=== PATIENT | female | born 1945 | race Caucasian/White ===

== ENCOUNTER 2018-10-20 03:51 | Emergency (ER) | payer MEDICARE, BC ==
[~2018-10-20] VITALS: Ht 152.4 cm; Wt 45.0 kg
--- NOTE | 2018-10-20 04:05 | NUR ---
bib remsa from home with c/o right flank pain that is tender to palpation started at 2300, denies n/v, fall or injury. pt a&ox4, gcs-15, 98% r/a, hr-103, b/p-128/70. monitors applied, siderails up x2, call light within reach
[2018-10-20] MEDS ORDERED: ABAC1TAB14 PO (04:12)
[2018-10-20] MEDS ORDERED: LOPE1LIQ6 PO (04:12)
[2018-10-20] MEDS ORDERED: DOCU240C53 PO (04:12)
[2018-10-20] MEDS ORDERED: ATOR10TA9 PO (04:12)
[2018-10-20] MEDS ORDERED: AMLO10TA8 PO (04:12)
[2018-10-20] MEDS ORDERED: CHOL2000 PO (04:12)
--- NOTE | 2018-10-20 04:34 | NUR ---
pt assisted to rr via w/c, provided pt with urine cup for sample
--- NOTE | 2018-10-20 04:45 | NUR ---
urine sample taken to lab
[2018-10-20 04:59] LABS: MICROSCOPIC NOT IND
[2018-10-20 05:01] LABS: CULTURE INDICATED? NO
[2018-10-20 05:37] LABS: BASOPHILS # (AUTO) 0.02 x10^3/uL (0-0.1); BASOPHILS % (AUTO) 0 % (0-1); EOSINOPHILS # (AUTO) 0.02 x10^3/uL (0-0.4); EOSINOPHILS % (AUTO) 0 % (1-7); LYMPHOCYTES # (AUTO) 1.36 x10^3/uL (1-3.4); LYMPHOCYTES % (AUTO) 14 % (22-44); MD NO; MEAN CORPUSCULAR HEMOGLOBIN 30.1 pg (27.0-34.8); MEAN CORPUSCULAR HGB CONC 33.2 g/dL (32.4-35.8); MEAN CORPUSCULAR VOLUME 90.6 fL (80-100); MEAN PLATELET VOLUME 9.3 fL (7.4-10.4); MONOCYTES # (AUTO) 0.55 x10^3/uL (0.2-0.8); MONOCYTES % (AUTO) 6 % (2-9); NEUTROPHILS # (AUTO) 8.09 x10^3/uL (1.8-6.8); NEUTROPHILS % (AUTO) 81 % (42-75); PLATELET COUNT 186 x10^3/uL (130-400); RED BLOOD COUNT 4.26 x10^6/uL (3.82-5.3); RED CELL DISTRIBUTION WIDTH 13.3 % (9.6-15.2)
[2018-10-20 05:38] LABS: ALANINE AMINOTRANSFERASE 25 U/L (12-78); ANION GAP 6 mmol/L (5-15); CALCIUM 8.7 mg/dL (8.5-10.1); CHLORIDE 107 mmol/L (98-107); CREATININE 0.72 mg/dL (0.55-1.02)
[2018-10-20 05:40] LABS: ALKALINE PHOSPHATASE 76 U/L (45-117); BILIRUBIN,TOTAL 0.6 mg/dL (0.2-1.0); TOTAL PROTEIN 7.3 g/dL (6.4-8.2)
--- NOTE | 2018-10-20 06:00 | NUR ---
pt resting on gurney, monitors in place, call light within reach. awaiting ct result
--- NOTE | 2018-10-20 06:18 | NUR ---
PT ABLE TO SLOWLY AMBULATE IN [place], STATED " IT JUST HURTS TOO MUCH", ASSISTED PT BACK TO ROOM, ERP UPDATED
[2018-10-20] MEDS ORDERED: ACETAMINOPHEN 500 MG TABLET ONE (06:46)
--- NOTE | 2018-10-20 06:48 | NUR ---
provided pt with ice pack, medicated per mar
[2018-10-20] MEDS ORDERED: ACETAMINOPHEN 500 MG TABLET PO ONE (07:00)
--- NOTE | 2018-10-20 07:00 | NUR ---
report given to indigo pickett
[2018-10-20 07:16] VITALS: BP 127/68
--- NOTE | 2018-10-20 07:17 | NUR ---
Patient/Caregiver given discharge instructions and they have confirmed that they understand the instructions. Patient ambulatory with steady gait.
== END 2018-10-20 07:18 | disposition home or self-care (01) ==
LOC: ED 05:33
DX: M54.5 Low back pain (principal); Z21 Asymptomatic human immunodeficiency virus [HIV] infection status
CPT/HCPCS: 36415; 74176; 80053; 81003; 83690; 85025; 99284

== ENCOUNTER 2019-03-12 10:30 | Outpatient (CLI) | payer MEDICARE, BC | END 2019-03-12 23:59 | disposition home or self-care (01) | LOC: CFH 10:30 | PROVIDERS: ATTEND Internal Medicine Cardiovascular Disease | DX: R94.31 Abnormal electrocardiogram [ECG] [EKG] (principal); I34.8 Other nonrheumatic mitral valve disorders; I10 Essential (primary) hypertension; E78.5 Hyperlipidemia, unspecified; Z87.891 Personal history of nicotine dependence | CPT/HCPCS: 93306 ==

== ENCOUNTER → 2019-06-11 | Outpatient (CLI) | payer MEDICARE, BC ==
[~2019-06-11] MED LIST: ABAC1TAB14 PO; AMLO10TA8 PO; ATOR10TA9 PO; CHOL2000 PO; DOCU240C53 PO; LOPE1LIQ6 PO; OMNIPAQUE 350 MG/ML, 150 ML BOTTLE ONE
== END | disposition home or self-care (01) ==
LOC: CFH 09:49
PROVIDERS: ATTEND Surgery
DX: I70.203 Unspecified atherosclerosis of native arteries of extremities, bilateral legs (principal)
CPT/HCPCS: 75635; Q9967

== ENCOUNTER 2021-01-10 13:03 | Outpatient (CLI) | payer MEDICARE, BC ==
[~2021-01-10 13:03] MED LIST changes: +AMLO-211 PO; -AMLO10TA8 PO; -OMNIPAQUE 350 MG/ML, 150 ML BOTTLE ONE
[2021-01-10] MEDS ORDERED: OMNIPAQUE 350 MG/ML, 150 ML BOTTLE ONE (14:06)
[2021-02-17] MEDS ORDERED: DOCU-131 PO (12:01)
[2021-02-17] MEDS ORDERED: OXYC1TAB14 PO (12:01)
[2021-02-17] MEDS ORDERED: OXYC-302 PO (12:03)
== END 2021-01-10 23:59 | disposition home or self-care (01) ==
LOC: CFH 13:03
PROVIDERS: ATTEND Surgery
DX: I70.213 Atherosclerosis of native arteries of extremities with intermittent claudication, bilateral legs (principal); G12.8 Other spinal muscular atrophies and related syndromes; I70.8 Atherosclerosis of other arteries; R60.0 Localized edema
CPT/HCPCS: 75635; 82565; Q9967

== ENCOUNTER 2021-01-25 08:00 | Outpatient (CLI) | payer MEDICARE, BC ==
[~2021-01-25] VITALS: Ht 154.9 cm; Wt 45.4 kg
[2021-01-25] MEDS ORDERED: ABAC1TAB14 PO (08:28)
[2021-01-25] MEDS ORDERED: CHOL10003 PO (08:28)
[2021-01-25] MEDS ORDERED: ATOR40TA78 PO (08:28)
[2021-01-25] MEDS ORDERED: hydroeye PO (08:28)
[2021-01-25] MEDS ORDERED: ASPI81TA45 PO (08:28)
[2021-01-25] MEDS ORDERED: LIFI1DRO EACHEYE (08:28)
[2021-01-25] MEDS ORDERED: potassium PO (08:28)
[2021-01-25] MEDS ORDERED: AMLO1CAP PO (08:28)
[2021-01-25] MEDS ORDERED: A/C/1TAB3 PO (08:28)
[2021-01-25 09:19] LABS: BASOPHILS % (AUTO) 0 % (0-1); EOSINOPHILS % (AUTO) 1 % (1-7); LYMPHOCYTES % (AUTO) 34 % (22-44); MEAN PLATELET VOLUME 8.9 fL (7.4-10.4); MONOCYTES % (AUTO) 8 % (2-9); NEUTROPHILS % (AUTO) 57 % (42-75); PLATELET COUNT 179 x10^3/uL (130-400); RED BLOOD COUNT 4.46 x10^6/uL (3.82-5.3); RED CELL DISTRIBUTION WIDTH 13.4 % (9.6-15.2)
[2021-01-25 09:30] LABS: ANION GAP 9 mmol/L (5-15); CALCIUM 9.6 mg/dL (8.5-10.1); CHLORIDE 105 mmol/L (98-107); CREATININE 0.78 mg/dL (0.55-1.02)
[2021-01-25 09:31] LABS: ALANINE AMINOTRANSFERASE 39 U/L (12-78); ALBUMIN 4.2 g/dL (3.4-5.0)
[2021-01-25 09:33] LABS: ALKALINE PHOSPHATASE 76 U/L (45-117); BILIRUBIN,TOTAL 0.4 mg/dL (0.2-1.0); TOTAL PROTEIN 7.8 g/dL (6.4-8.2)
== END 2021-01-25 23:59 | disposition home or self-care (01) ==
LOC: STAR 08:00 → EDSTATUS 01-27 07:30
PROVIDERS: ATTEND Surgery
DX: Z01.812 Encounter for preprocedural laboratory examination (principal); Z20.822 Contact with and (suspected) exposure to COVID-19; I74.5 Embolism and thrombosis of iliac artery; I70.213 Atherosclerosis of native arteries of extremities with intermittent claudication, bilateral legs
CPT/HCPCS: 36415; 80053; 85025; 86850; 86900; 93005; U0003; U0005